=== PATIENT | male | born 1960 | race Caucasian/White ===

== ENCOUNTER 2018-03-10 14:47 | Inpatient (IN) | payer MEDICAID, OTHER ==
[~2018-03-10] VITALS: Ht 167.6 cm; Wt 66.7 kg
[~2018-03-10 14:47] MED LIST: ACET-2869 PO; AMIO200T5 PO; ASCO-770 PO; ASPI81CT89 PO; ATOR20TA40 PO; ATOR40TA PO; CARV3.122 PO; CLOP75TA26 PO; FURO-572 PO; IBUP-2213 PO; LEVO0.124 PO; LEVO0.155 PO; PRO5 PO; SPIR50TA PO; VITA1TAB44 PO
[2018-03-10 15:00] VITALS: BP 141/62
--- NOTE | 2018-03-10 15:02 | NUR ---
57 Y/O M BIB SELF W/C/O CHEST PAIN. PT STATES, "THE PAIN HAS BEEN COMING AND GOING FOR THE LAST 4 DAYS, THE PAIN FEELS SHARP AND IS ON THE L SIDE OF MY CHEST." PT FEELS PAIN AT REST. PT DENIES N/V/D; SKIN IS INTACT, PINK/WARM/DRY; AAOX4, PERRL, WITH EVEN AND STEADY GAIT; LUNGS CLEAR BL, BREATHING UNLABORED; HR EVEN AND REGULAR, BL PERIPHERAL PULSES PRESENT; BS ACTIVE X4, NO TENDERNESS TO PALPATION, NO HEPATOSPLENOMEGALLY PALPATED, RESONANT TO PERCUSSION; PT DENIES ANY FEVER, SOB, OR COUGH AT THIS TIME; PT STATES 9/10 PAIN AT THIS TIME; VSS; PATIENT POSITIONED FOR COMFORT; HOB ELEVATED; BEDRAILS UP X2; BED DOWN. hx--DM, CVA 6th bypass (9 months), Hypothyriodism, Hyperlipidemia, CDA rx--Levothyroxine 150mg, Furosemide 20mg, Clopidogrel 75mg, Metformin 500mg, Carvedilol 3.125mg, Atorvastatin 40mg, Spironolactone 25mg
--- NOTE | 2018-03-10 15:05 | NUR ---
notified er md valle of patient condition. gave report to Gia ELAINE.
--- NOTE | 2018-03-10 15:08 | NUR ---
DR. WATKINS AT BEDSIDE EVALUATING
--- NOTE | 2018-03-10 15:22 | NUR ---
PT. TAKEN TO CT SCAN VIA WHEELCHAIR BY GEORGE CLARK
[2018-03-10 16:01] LABS: BASOPHILS # (AUTO) 0.1 K/uL (0.00-0.22); BASOPHILS % (AUTO) 0.7 % (0.0-2.0); EOSINOPHILS # (AUTO) 0.2 K/uL (0-0.4); EOSINOPHILS % (AUTO) 1.5 % (0.0-4.0); HEMATOCRIT 43.9 % (36-52); HEMOGLOBIN 14.6 g/dL (12.0-18.0); LYMPHOCYTES # (AUTO) 1.6 K/uL (2.0-11.5); LYMPHOCYTES % (AUTO) 16.2 % (20.5-51.1); MEAN CORPUSCULAR HEMOGLOBIN 30 pg (27-31); MEAN CORPUSCULAR HGB CONC 33 g/dL (33-37); MEAN CORPUSCULAR VOLUME 91.1 fL (80-94); MONOCYTES # (AUTO) 0.5 K/uL (0.8-1.0); MONOCYTES % (AUTO) 5.4 % (1.7-9.3); NEUTROPHILS # (AUTO) 7.4 K/uL (1.8-7.7); NEUTROPHILS % (AUTO) 76.2 % (42.2-75.2); PLATELET COUNT (AUTO) 238 K/uL (140-450); RED BLOOD CELL COUNT(AUTO) 4.82 MIL/uL (4.20-6.10); RED CELL DISTRIBUTION WIDTH 14.7 % (11.6-13.7); WHITE BLOOD COUNT (AUTO) 9.7 K/uL (4.8-10.8)
[2018-03-10 16:15] LABS: ANION GAP 15.8 (8-16); CARBON DIOXIDE 28.4 mmol/L (21-32); CREATININE 1.3 mg/dL (0.7-1.3); POTASSIUM 4.2 mmol/L (3.5-5.1)
[2018-03-10 16:18] LABS: PROTHROMBIN TIME 10.3 secs (10.8-13.4)
[2018-03-10 16:21] LABS: ALBUMIN 4.1 g/dL (3.4-5.0); TOTAL BILIRUBIN 0.8 mg/dL (0.0-1.0)
--- NOTE | 2018-03-10 16:30 | NUR ---
PT. RESTING COMFORTABLY IN BED, RR EVEN AND UNLABORED. WILL CONTINUE TO MONITOR.
--- NOTE | 2018-03-10 17:45 | NUR ---
PT. AMBULATED TO RESTROOM, RR EVEN AND UNLABORED, STEADY GAIT. DENIES SOB. WILL CONTINUE TO MONITOR.
[2018-03-10] MEDS ORDERED: INSULIN LISPRO SLIDING SCALE 100 UNITS/ML VIAL SUBQ PRN (18:15)
[2018-03-10] MEDS ORDERED: HYDROcodone/APAP 5/325 MG 1 TAB TAB PO PRN (18:15)
[2018-03-10] MEDS ORDERED: ZOLPIDEM 5 MG TAB PO PRN (18:15)
[2018-03-10] MEDS ORDERED: LORazepam 2 MG/ML VIAL IVP PRN (18:15)
[2018-03-10] MEDS ORDERED: ALBUTEROL 0.083% 2.5 MG/3 ML NEBU IH PRN (18:15)
[2018-03-10] MEDS ORDERED: MORPHINE SULFATE 2 MG/ML SYR IVP PRN (18:15)
[2018-03-10] MEDS ORDERED: ACETAMINOPHEN 325 MG TAB PO PRN (18:15)
[2018-03-10] MEDS ORDERED: NITROGLYCERIN 0.4 MG TAB SL PRN (18:15)
[2018-03-10] MEDS ORDERED: ONDANSETRON 4 MG/2 ML VIAL IVP PRN (18:15)
--- NOTE | 2018-03-10 18:39 | NUR ---
Patient will be admitted to care of DR. HANSEN . Admited to TELE . Will go to room 112A . Belongings list completed. Report to CHELE MENDOZA .
--- NOTE | 2018-03-10 18:45 | NUR ---
RECEIVED PT REPORT FROM ER NURSE, YOVANI. PT IS AAOX4. AMBULATORY. VITALS TAKEN. MRSA SCREENING DONE. ORIENTED PT TO ROOM. SIDE RAILS UP X2, BED IN LOWEST POSITION. CALL LIGHT WITHIN REACH. CALLED KITCHEN FOR DINNER TRAY.
--- NOTE | 2018-03-10 19:15 | NUR ---
REPORT GIVEN TO CIVILIAN JAIL OFFICER RN. PT IN STABLE CONDITION.
--- NOTE | 2018-03-10 19:16 | NUR ---
RECEIVED BEDSIDE REPORT. PATIENTS VITAL SIGNS WITHIN NORMAL LIMITS. PATIENT IN NO DISTRESS. DENIES ANY PAIN. HAS NO SOB. IV ON RAC 20G CLEAN DRY AND INTACT. ALL SAFETY MEASURES IN PLACE. CALL LIGHT WITHIN REACH. WILL CONTINUE TO MONITOR.
--- NOTE | 2018-03-10 19:36 | NUR ---
RECEIVED CALL FROM Isaias ZHU FOR PT UPDATE, STATED TO ORDER TROPONIN, Q6H X2, AND EKG FOR TOMORROW MORNING, WILL PUT IN ORDERS, AND CONTINUE WITH ORDERS.
[2018-03-10 20:00] VITALS: BP 91/59
[2018-03-10] MEDS: BLOOD GLUCOSE MONITORING 1 DEV DEV FS SCH (20:42)
[2018-03-10] MEDS ORDERED: SIMVASTATIN 20 MG TAB PO SCH (21:00)
[2018-03-10] MEDS: METOPROLOL 25 MG TAB PO SCH (21:00)
--- NOTE | 2018-03-10 21:00 | NUR ---
DUE MEDICATIONS GIVEN LOPRESSOR HELD PT B/P WAS LOW 91/59. WILL CONTINUE TO MONITOR. CALL LIGHT WITHIN REACH.
[2018-03-11] VITALS: BP 91/49
--- NOTE | 2018-03-11 | NUR ---
PATIENT IS SLEEPING IN BED BUT IS EASILY AROUSABLE. PATIENT IS IN STABLE CONDITION. DENIES ANY PAIN. HAS NO SOB. CALL LIGHT WITHIN REACH WILL CONTINUE TO MONITOR.
--- NOTE | 2018-03-11 02:15 | NUR ---
PATIENT SLEEPING IN BED NO DISTRESS NOTED. BED ON LOWEST POSITION. CALL LIGHT WITHIN REACH. WILL CONTINUE TO MONITOR.
[2018-03-11 04:00] VITALS: BP 103/55
--- NOTE | 2018-03-11 04:20 | NUR ---
PATIENT SLEEPING IN BED. VITAL SIGNS WITHIN NORMAL LIMITS. PT DENIES PAIN AT THIS TIME. NO DISTRESS NOTED. CALL LIGHT WITHIN REACH WILL CONTINUE TO MONITOR.
--- NOTE | 2018-03-11 06:00 | NUR ---
PATIENT IS RESTING COMFORTABLY IN BED. NO DISTRESS NOTED AT THIS TIME. CALL LIGHT WITHIN REACH.
[2018-03-11] MEDS: BLOOD GLUCOSE MONITORING 1 DEV DEV FS SCH ×2 (06:25→11:55)
--- NOTE | 2018-03-11 07:00 | NUR ---
PT IV WAS OUT, CATH INTACT, NEW IV INSERTED L HAND 24G , PT TOLERATED WELL, NO DISTRESS NOTED, CALL LIGHT WITHIN REACH, WILL CONTINUE TO MONITOR.
--- NOTE | 2018-03-11 07:10 | NUR ---
ENDORSED PATIENT TO NURSE VIA SBAR. PATIENT RESTING COMFORTABLY IN BED. NO SOB. NO DISTRESS NOTED AT THIS TIME. CALL LIGHT WITHIN REACH
--- NOTE | 2018-03-11 07:11 | NUR ---
RECEIVED BEDSIDE REPORT FROM NIGHT NURSE. PT AWAKE, ALERT AND ORIENTED X 4. TELE PT. PT SUPINE IN BED. BUT ABLE TO AMBULATE INDEPENDENTLY. NO COMPLAINTS OF CHEST PAIN AT THIS TIME. LEFT HAND G 24 , SALINE LOCK BED AT LOWEST POSITION. CALL LIGHT WITHIN EASY REACH. WILL CONTINUE TO MONITOR.
[2018-03-11 07:42] LABS: BASOPHILS # (AUTO) 0.1 K/uL (0.00-0.22); BASOPHILS % (AUTO) 0.6 % (0.0-2.0); EOSINOPHILS # (AUTO) 0.3 K/uL (0-0.4); EOSINOPHILS % (AUTO) 2.8 % (0.0-4.0); HEMATOCRIT 43.1 % (36-52); HEMOGLOBIN 14.2 g/dL (12.0-18.0); LYMPHOCYTES # (AUTO) 2.1 K/uL (2.0-11.5); LYMPHOCYTES % (AUTO) 20.3 % (20.5-51.1); MEAN CORPUSCULAR HEMOGLOBIN 30 pg (27-31); MEAN CORPUSCULAR HGB CONC 33 g/dL (33-37); MEAN CORPUSCULAR VOLUME 91.8 fL (80-94); MONOCYTES # (AUTO) 0.8 K/uL (0.8-1.0); MONOCYTES % (AUTO) 7.5 % (1.7-9.3); NEUTROPHILS # (AUTO) 7.1 K/uL (1.8-7.7); NEUTROPHILS % (AUTO) 68.8 % (42.2-75.2); PLATELET COUNT (AUTO) 231 K/uL (140-450); RED BLOOD CELL COUNT(AUTO) 4.69 MIL/uL (4.20-6.10); RED CELL DISTRIBUTION WIDTH 14.6 % (11.6-13.7); WHITE BLOOD COUNT (AUTO) 10.3 K/uL (4.8-10.8)
--- NOTE | 2018-03-11 07:50 | NUR ---
PT C/O OF HEADACHE 11/16, PT STATES, " PRESSURE/ TENSION HEADACHE". WILL MEDICATE WITH TYLENOL.PT WAS GIVEN A CUP OF COFFEE PER PT'S REQUEST. WILL CONTINUE TO MONITOR FOR ANY OTHER CHANGES OF CONDITION
[2018-03-11 07:55] LABS: ANION GAP 6.9 (8-16); CARBON DIOXIDE 30.1 mmol/L (21-32); CREATININE 1.1 mg/dL (0.7-1.3)
[2018-03-11 08:00] VITALS: BP 88/64
--- NOTE | 2018-03-11 08:39 | NUR ---
PATIENT HAS BEEN SCREENED AND CATEGORIZED HIGH NUTRITION RISK. PATIENT WILL BE SEEN WITHIN 1-2 DAYS OF ADMISSION. 03/11/18 03/12/[address]
--- NOTE | 2018-03-11 08:40 | NUR ---
ADMINISTERED AM MEDS. PT ABLE TO SWALLOW, AND TOLERATED WELL. GIVEN TYLENOL FOR HEADACHE.HELD METOPROLOL FOR LOW BLOOD PRESSURE.
[2018-03-11] MEDS: METOPROLOL 25 MG TAB PO SCH (09:00)
[2018-03-11] MEDS ORDERED: ENOXAPARIN 40 MG/0.4 ML SYR SUBQ SCH (09:00)
[2018-03-11] MEDS ORDERED: ASPIRIN 81 MG TAB.CHEW PO SCH (09:00)
--- NOTE | 2018-03-11 09:19 | NUR ---
DR. REYES CALLED TO ORDER A TREADMILL STRESS TEST FOR 1300. FOR STRICT NPO TEMPORARILY UNTIL TEST IS DONE.CARDIOLOGY CALLED TO SCHEDULE 1300H TEST, CONFIRMED BY RUTH.PT MADE AWARE OF THE PLAN FOR NPO, VERBALIZED UNDERSTANDING. FLU SHOT OFFERED BUT PT REFUSED DUE TO FEAR OF GETTING SICK.
--- NOTE | 2018-03-11 10:09 | NUR ---
CM NOTE INITIAL REVIEW FAXED TO [facility] [phone] SANDEEP # [phone].
[2018-03-11] MEDS ORDERED: METF500T PO (11:52)
[2018-03-11 12:00] VITALS: BP 110/50
--- NOTE | 2018-03-11 13:38 | NUR ---
03/11/18 RD INITIAL ASSESSMENT COMPLETED PLEASE REFER TO NUTRITION ASSESSMENT UNDER CARE ACTIVITY FOR ESTIMATED NUTRITIONAL NEEDS. 1. CONTINUE CCHO 60 DIET TOLERATED 2. RECOMMEND CARDIAC DIET. 3. PT WAS EDUCATED ON HEART HEALTHY DIET 4. RD TO FOLLOW-UP 5-7 DAYS, LOW RISK JOHNNA CARLTON RD
--- NOTE | 2018-03-11 15:10 | NUR ---
DOCUMENTS PREPARED FOR DISCHARGE. PT. WAS EXPLAINED ON THE DISCHARGE PLAN & PRESCRIPTION. PT SIGNED PAPERS AND VERBALIZED UNDERSTANDING. PT ESCORTED TO EXIT AMBULATORY. NO FAMILY AROUND.PT STABLE IN CONDITION.
[2018-03-11] MEDS ORDERED: CARVEDILOL 3.125 MG TAB PO SCH (21:00)
[2018-03-12] MEDS ORDERED: LEVOTHYROXINE 0.075 MG TAB PO SCH (06:30)
[2018-03-12] MEDS ORDERED: ATORVASTATIN 20 MG TAB PO SCH (09:00)
[2018-03-12] MEDS ORDERED: CLOPIDOGREL 75 MG TAB PO SCH (09:00)
[2018-03-12] MEDS ORDERED: FUROSEMIDE 20 MG TAB PO SCH (09:00)
== END 2018-03-11 15:10 | disposition home or self-care (01) | DRG 203 ==
LOC: MED 14:47 → MTU 18:17 → OBSVTOIN 03-11 07:36
PROVIDERS: ADMIT Hospitalist; ATTEND Hospitalist
DX: M94.0 Chondrocostal junction syndrome [Tietze] (principal); E11.51 Type 2 diabetes mellitus with diabetic peripheral angiopathy without gangrene; I50.9 Heart failure, unspecified; I11.0 Hypertensive heart disease with heart failure; E78.5 Hyperlipidemia, unspecified; I25.10 Atherosclerotic heart disease of native coronary artery without angina pectoris; F17.210 Nicotine dependence, cigarettes, uncomplicated; E03.9 Hypothyroidism, unspecified; I65.23 Occlusion and stenosis of bilateral carotid arteries; J44.9 Chronic obstructive pulmonary disease, unspecified; Z79.82 Long term (current) use of aspirin; Z86.73 Personal history of transient ischemic attack (TIA), and cerebral infarction without residual deficits; Z79.899 Other long term (current) drug therapy; Z95.1 Presence of aortocoronary bypass graft; Z79.84 Long term (current) use of oral hypoglycemic drugs; Z71.6 Tobacco abuse counseling
CPT/HCPCS: 99285; G0378; 36415; 70450; 71045; 80048; 80053; 82550; 82553; 82948; 83735; 83880; 84484; 85025; 85610; 85730; 86886; 86900; 86901; 87081; 93005; J1650; J1815

== ENCOUNTER 2018-07-29 16:01 | Emergency (ER) | payer OTHER ==
[~2018-07-29] VITALS: Ht 165.1 cm; Wt 63.5 kg
[~2018-07-29 16:01] MED LIST changes: -ACET-2869 PO; -AMIO200T5 PO; -ASCO-770 PO; -ASPI81CT89 PO; -ATOR20TA40 PO; -IBUP-2213 PO; -LEVO0.124 PO; +METF500T PO; -PRO5 PO; -VITA1TAB44 PO
[2018-07-29 16:10] VITALS: BP 173/102
--- NOTE | 2018-07-29 16:35 | NUR ---
PT. CAME INTO THE ED DUE TO COUGH X 3 DAYS . PT. STATES " I HAVE BEEN COUGHING HARD FOR 3 DAYS WITH CLEAR AND WHITE PHLEGM". 6/10 R SIDED CHEST PAIN THAT IS NON RADIATING AND CONSTANT AND WORSE UPON COUGHING. DENIES ANY N/V/D. PT IS AWAKE AND ALERT AND ABLE TO SPEAK IN FULL AND COMPLETE SENTENCES. LS: CLEAR BILAT. THROUGHOUT. SYMMETRICAL CHEST RISE AND FALL. RR EVEN AND UNLABORED. DENIES ANY FEVERS OR CHILLS. L SIDED WEAKNESS DUE TO STROK PER PATIENT. ER MD MADE AWARE. SAFETY PRECAUTIONS IN PLACE. WILL CONTINUE TO MONITOR.
--- NOTE | 2018-07-29 17:08 | NUR ---
XRAY AT BEDSIDE AT THIS TIME.
[2018-07-29 17:41] VITALS: BP 136/78
--- NOTE | 2018-07-29 17:41 | NUR ---
Patient discharged with v/s stable. Written and verbal after care instructions given and explained. Patient verbalized understanding. Ambulatory with to car. All questions addressed prior to discharge. Advised to follow up with PMD 1-2 DAYS .
== END 2018-07-29 17:41 | disposition home or self-care (01) ==
LOC: MED 16:01
DX: J06.9 Acute upper respiratory infection, unspecified (principal); R07.89 Other chest pain; R53.1 Weakness; R20.0 Anesthesia of skin; I11.0 Hypertensive heart disease with heart failure; I50.9 Heart failure, unspecified; E11.9 Type 2 diabetes mellitus without complications; F17.210 Nicotine dependence, cigarettes, uncomplicated; Z90.89 Acquired absence of other organs; Z86.73 Personal history of transient ischemic attack (TIA), and cerebral infarction without residual deficits
CPT/HCPCS: 71045; 99283; Q0092; 93005

== ENCOUNTER 2018-09-11 16:55 | Inpatient (IN) | payer MEDICAID, OTHER ==
[~2018-09-11] VITALS: Ht 167.6 cm; Wt 64.0 kg
[2018-09-11 17:15] VITALS: BP 157/91
--- NOTE | 2018-09-11 17:32 | NUR ---
PT AMBULATES TO CHAIR E
--- NOTE | 2018-09-11 17:53 | NUR ---
57 Y MALE BIB SELF WITH C/O LT SIDED CHEST PAIN AROUND 0930 THIS MORNING, TINGLING LT ARM, FELL LIGHT HEADED AND FELL DOWN TO THE FLOOR, FELT CONFUSED. PRESSURE AND CHEST PAIN 5/10. DENIES LOC, OR NVD. ALERT TO PERSON TIME AND PLACE. UNABLE TO RECALL YEAR. CLEAR SPEECH. WAS SEEN ON 07/29/18 FOR CP. PT ON MONITOR. BP 150/69. BED IS DOWN LOCKED, BED RAIL X1, ERMD NOTIFIED. HX; STROKE, OPEN HEART SURGERY, HTN, SURGERY ON R SHOULDER AND BOTH KNEES, CAN'T RECALL OTHER DIAGNOSIS RX; CARVEDILOL, LEVOTHYROXINE, CLOPIDOGREL, METFORMIN, SPIRONOLACTONE, LASIX, PLAVIX, GLUCOPHAGE
[2018-09-11] MEDS ORDERED: MORPHINE SULFATE 4 MG/ML SYR IVP ONE (18:55)
--- NOTE | 2018-09-11 19:01 | NUR ---
PT BEING TAKEN TO CT
--- NOTE | 2018-09-11 19:39 | NUR ---
PT REFUSED MORPHINE, SAID HE GETS HALLUCINATIONS
[2018-09-11 19:41] LABS: BASOPHILS % (AUTO) 0.4 % (0.0-2.0); EOSINOPHILS # (AUTO) 0.1 K/uL (0-0.4); EOSINOPHILS % (AUTO) 1.2 % (0.0-4.0); HEMATOCRIT 45.3 % (36-52); HEMOGLOBIN 15.4 g/dL (12.0-18.0); LYMPHOCYTES % (AUTO) 19.4 % (20.5-51.1); MEAN CORPUSCULAR HEMOGLOBIN 31 pg (27-31); MEAN CORPUSCULAR HGB CONC 34 g/dL (33-37); MEAN CORPUSCULAR VOLUME 89.5 fL (80-94); MONOCYTES # (AUTO) 0.7 K/uL (0.8-1.0); MONOCYTES % (AUTO) 6.9 % (1.7-9.3); NEUTROPHILS # (AUTO) 7.6 K/uL (1.8-7.7); NEUTROPHILS % (AUTO) 72.1 % (42.2-75.2); PLATELET COUNT (AUTO) 239 K/uL (140-450); RED BLOOD CELL COUNT(AUTO) 5.06 MIL/uL (4.20-6.10); RED CELL DISTRIBUTION WIDTH 13.3 % (11.6-13.7); WHITE BLOOD COUNT (AUTO) 10.5 K/uL (4.8-10.8)
--- NOTE | 2018-09-11 20:13 | NUR ---
DR ROYAL AT BEDSIDE
[2018-09-11] MEDS ORDERED: NACL 0.9% 1,000 ML IV ONE (20:20)
[2018-09-11] MEDS ORDERED: NITROGLYCERIN 2% 1 GM PKT TP ONE (20:20)
[2018-09-11] MEDS ORDERED: KETOROLAC 15 MG/ML VIAL IVP ONE (20:20)
[2018-09-11 20:26] LABS: ANION GAP 14.6 (8-16); POTASSIUM 3.6 mmol/L (3.5-5.1)
[2018-09-11 20:33] LABS: TOTAL BILIRUBIN 0.5 mg/dL (0.0-1.0)
--- NOTE | 2018-09-11 21:04 | NUR ---
REPORT GIVEN TO MALACHI ELAINE
[2018-09-11] MEDS: NACL 0.9% 1,000 ML IV SCH (21:56)
[2018-09-11] MEDS ORDERED: ACETAMINOPHEN 325 MG TAB PO PRN (22:00)
[2018-09-11] MEDS ORDERED: KETOROLAC 30 MG/ML VIAL IVP PRN (22:00)
[2018-09-11] MEDS ORDERED: DOCUSATE SODIUM 100 MG GELCAP PO PRN (22:00)
[2018-09-11] MEDS ORDERED: HYDROcodone/APAP 7.5/325 MG 1 TAB PO PRN (22:00)
[2018-09-11] MEDS ORDERED: ONDANSETRON 4 MG/2 ML VIAL IM/IVP PRN (22:00)
--- NOTE | 2018-09-11 22:08 | NUR ---
PT SITTING ON CHAIR AT BEDSIDE, VSS, RR EVEN AND UNLABORED. REPORTS MILD HEADACHE. REPORTS TOLERABLE PRESSURE-LIKE CP AT THIS TIME. ALL NEEDS MET.
[2018-09-11 22:27] LABS: PROTHROMBIN TIME 9.9 secs (10.8-13.4)
[2018-09-11] MEDS ORDERED: SPIR25TA20 PO (22:28)
[2018-09-11] MEDS ORDERED: FURO-572 PO (22:28)
[2018-09-11 22:30] LABS: CHOL/HDL RATIO 2.2 (1-4.5); HDL CHOLESTEROL 60 mg/dL (40-60); LDL (CALC) 60 mg/dL (60-100); LIPASE 187 U/L (73-393); PHOSPHORUS 3.5 mg/dL (2.5-4.9); THYROID STIMULATING HORMONE < 0.01 uIU/mL (0.34-3.74); TRIGLYCERIDES 73 mg/dL (30-150)
--- NOTE | 2018-09-11 22:40 | NUR ---
Patient will be admitted to care of DR. HANSEN. Admited to TELE. Will go to room 125B. Belongings list completed. Report to CHELE VIVEROS AT BEDSIDE.
[2018-09-11 22:55] LABS: APPEARANCE,URINE CLEAR (CLEAR); BILIRUBIN,URINE NEGATIVE (NEGATIVE); BLOOD, URINE TRACE-L (NEGATIVE); COLOR,URINE YELLOW (YELLOW); LEUKOCYTE ESTERASE ,URINE NEGATIVE (NEGATIVE); NITRITE, URINE NEGATIVE (NEGATIVE); UGLUCOSE NEGATIVE (NEGATIVE)
--- NOTE | 2018-09-11 23:00 | NUR ---
RECEIVED FROM ER PER WHEELCHAIR AWAKE AND ALERT. AMBULATING WELL. NO SOB. DENIES ANY PAIN AT THIS TIME. CALL LIGHT WITH IN REACH. CARE PLANS FOR THE NIGHT DISCUSSED WITH HIM. ORIENTED TO ROOM , BED AND PROVIDER SERVICE REPRESENTATIVE. DX. OF CHEST PAIN R/O ACS. TELEMETRY MONITORING. NO EDEMA. CTAB.
[2018-09-11 23:04] VITALS: BP 124/58
[2018-09-11 23:10] LABS: RBC,URINE 0-5 /HPF (0-5); WBC,URINE NONE SEEN /HPF (0-5)
[2018-09-11 23:17] LABS: BARBITURATE, URINE NEG. ng/ml (NEG <=200); BENZODIAZEPINE, URINE NEG. ng/mL (NEG <=200); CANNABINOID, URINE NEG. ng/mL (NEG <=50); COCAINE, URINE NEG. ng/mL (NEG <=300); OPIATE, URINE NEG. ng/mL (NEG <=2000); PHENCYCLIDINE SCREEN,URINE NEG. ng/mL (NEG <=25)
--- NOTE | 2018-09-12 01:21 | NUR ---
SLEEPING AT THIS TIME. NO RESTLESSNESS. ON FALL PRECAUTIONS RT FELL OUTSIDE OF FACILITY PRIOR ADMISSION. BED ALARM ON. CALL LIGHT WITH IN REACH.
[2018-09-12] MEDS: NACL 0.9% 1,000 ML IV SCH (02:31)
--- NOTE | 2018-09-12 03:00 | NUR ---
SLEEPING. NO RESTLESSNESS. TELEMETRY MONITORING.
[2018-09-12 04:39] VITALS: BP 97/58
--- NOTE | 2018-09-12 04:41 | NUR ---
WOKE UP WHEN VITALS TAKEN. DENIES PAIN. SLEPT BACK EASILY. AMBULATES WELL WITH OUT ASSIST. BED ALARM ON. CALL LIGHT WITH IN REACH. TELEMETRY MONITORING.
--- NOTE | 2018-09-12 06:23 | NUR ---
SLEEPING STILL. MO COMPLAINTS OF CHEST PAIN THIS SHIFT. WAKES UP EASILY WHEN TOUCHED OR CALLED BY NAME. WILL ENDORSE TO THE NEXT AM RN FOR CONTINUITY OF CARE. TELEMETRY MONITORING. INDEPENDENT.
--- NOTE | 2018-09-12 07:20 | NUR ---
RECEIVED PT REPORT FROM MAGAZINE HAND NURSE, PT IS AWAKE AND ALERT, NO S/S OF ACUTE DISTRESS OR SOB NOTED. PT IS ON ROOM AIR, SKIN INTACT. IV SITE IS ON THE R HAND, 24 G, INFUSING NS 60 ML/HR. FALL PRECAUTIONS ARE IN PLACE. CALL LIGHT WITHIN REACH. WILL CONTINUE TO MONITOR.
[2018-09-12 07:40] LABS: ANION GAP 12.9 (8-16); CARBON DIOXIDE 25.9 mmol/L (21-32); CREATININE 1.2 mg/dL (0.7-1.3); POTASSIUM 3.8 mmol/L (3.5-5.1)
[2018-09-12 07:45] LABS: BASOPHILS % (AUTO) 0.3 % (0.0-2.0); EOSINOPHILS # (AUTO) 0.3 K/uL (0-0.4); EOSINOPHILS % (AUTO) 4.3 % (0.0-4.0); HEMATOCRIT 38.2 % (36-52); HEMOGLOBIN 13.1 g/dL (12.0-18.0); LYMPHOCYTES # (AUTO) 1.6 K/uL (2.0-11.5); LYMPHOCYTES % (AUTO) 22.4 % (20.5-51.1); MEAN CORPUSCULAR HEMOGLOBIN 31 pg (27-31); MEAN CORPUSCULAR HGB CONC 34 g/dL (33-37); MONOCYTES # (AUTO) 0.7 K/uL (0.8-1.0); MONOCYTES % (AUTO) 9.6 % (1.7-9.3); NEUTROPHILS # (AUTO) 4.6 K/uL (1.8-7.7); NEUTROPHILS % (AUTO) 63.4 % (42.2-75.2); PLATELET COUNT (AUTO) 194 K/uL (140-450); RED BLOOD CELL COUNT(AUTO) 4.29 MIL/uL (4.20-6.10); RED CELL DISTRIBUTION WIDTH 13.3 % (11.6-13.7); WHITE BLOOD COUNT (AUTO) 7.2 K/uL (4.8-10.8)
[2018-09-12 08:00] VITALS: BP 111/55
--- NOTE | 2018-09-12 08:21 | NUR ---
PATIENT HAS BEEN SCREENED AND CATEGORIZED MODERATE NUTRITION RISK. PATIENT WILL BE SEEN WITHIN 3-5 DAYS OF ADMISSION. 09/13/18-09/15/[address]
[2018-09-12] MEDS: metFORMIN 500 MG TAB PO SCH ×2 (08:27→20:09)
[2018-09-12] MEDS: CLOPIDOGREL 75 MG TAB PO SCH (08:27)
[2018-09-12] MEDS: ATORVASTATIN 20 MG TAB PO SCH (08:28)
[2018-09-12] MEDS: LACTOBACILLUS RHAMNOSUS GG 1 EACH CAP PO SCH (08:28)
[2018-09-12] MEDS: CARVEDILOL 3.125 MG TAB PO SCH ×2 (08:28→21:00)
--- NOTE | 2018-09-12 08:35 | NUR ---
AM ORAL MEDS ADMINISTERED, PT TOLERATED WELL. PT'S IV GOT INFILTRATED, WILL ATTEMPT TO INSERT A NEW IV.
[2018-09-12] MEDS ORDERED: LEVOTHYROXINE 0.075 MG TAB PO SCH (09:00)
[2018-09-12] MEDS ORDERED: FUROSEMIDE 20 MG/2 ML VIAL IVP SCH (09:00)
[2018-09-12] MEDS ORDERED: ASPIRIN 81 MG TAB.CHEW PO SCH (09:00)
--- NOTE | 2018-09-12 10:05 | NUR ---
PT GETTING EKG AT THIS TIME
--- NOTE | 2018-09-12 10:05 | NUR ---
TWO ATTEMPTS AT INSERTING A NEW IV UNSUCCESSFUL; WILL ASK ANOTHER RN TO TRY INSERTING IV
--- NOTE | 2018-09-12 11:55 | NUR ---
NEW IV INSERTED: L HAND 22 GAUGE. PATENT AND INTACT.
[2018-09-12 12:00] VITALS: BP 113/63
[2018-09-12] MEDS: APAP/BUTAL/CAFF 325/50/40 MG 1 TAB PO PRN ×2 (12:34→20:10)
--- NOTE | 2018-09-12 14:05 | NUR ---
PT'S OWN MEDICATIONS TAKEN TO PHARMACY TO BE KEPT UNTIL DISCHARGE.
[2018-09-12 16:00] VITALS: BP 100/64
--- NOTE | 2018-09-12 18:05 | NUR ---
PT'S IV BECAME INFILTRATED AGAIN. DR KRUSE IS AWARE, SHE CANCELLED PT'S IV FLUIDS, SINCE HE IS EATING AND DRINKING, AND CHANGED HIS IV LASIX TO ORAL ROUTE.
--- NOTE | 2018-09-12 18:33 | NUR ---
PT SEEN BY DR SPEAR.
--- NOTE | 2018-09-12 19:25 | NUR ---
RECEIVED ENDORSEMENT FORM MALENA ELAINE AT BEDSIDE FOR ENDORSEMENT OF CARE, PT IN STABLE CONDITION.
--- NOTE | 2018-09-12 19:25 | NUR ---
PT ENDORSED TO HAIRCUTTER NURSE IN STABLE CONDITION.
--- NOTE | 2018-09-12 19:25 | NUR ---
RECEIVED REPORT AT BEDSIDE FORM MALENA RN DAYSHIFT NURSE FOR CONTINUITY OF CARE, PT IN STABLE CONDITION.
[2018-09-12 20:00] VITALS: BP 95/60
--- NOTE | 2018-09-12 20:00 | NUR ---
PT IN BED NO S/S OF PAIN OR DISTRESS NOTED. V/S FOLLOWS T 98.2 P 67 R 18 B/P 95/60 02 100%. PT REQUEST SNACK AND PAIN MEDICATION FOR HEADACHE.
--- NOTE | 2018-09-12 20:15 | NUR ---
PT GIVEN PO/PRN FIORICET FOR C/O HEADACHE PLUS SNACK. PT GIVEN DUE MEDS EXCEPT FOR COREG WAS HELD DUE TO B/P BEING LOW 95/60. ALL FALLS PRECAUTIONS N PLACE. WILL MONITOR FOR EFFECT.
[2018-09-13] VITALS: BP 106/53
--- NOTE | 2018-09-13 00:30 | NUR ---
PT IN BED SLEEPING BUT AROUSABLE TO NAME, V/S FOLLOWS T 97.7 P 63 R 18 B/P 106/53 02 99% ON ROOM AIR.
[2018-09-13 04:00] VITALS: BP 103/47
--- NOTE | 2018-09-13 07:30 | NUR ---
RECEIVED PT REPORT FROM BOOTMAKER NURSE, PT IS ASLEEP, ON ROOM AIR, SKIN INTACT, NO S/S OF ACUTE DISTRESS OR SOB. NO IV SITE NOTED. FALL PRECAUTIONS MAINTAINED. CALL LIGHT IS WITHIN REACH. WILL CONTINUE TO MONITOR.
--- NOTE | 2018-09-13 07:30 | NUR ---
CARE ENDORSEE TO MALENA RN DAYSHIFT AT BEDSIDE FOR CONTINUITY OF CARE, PT IN STABLE CONDITION.
[2018-09-13 08:00] VITALS: BP 105/72
--- NOTE | 2018-09-13 08:15 | NUR ---
AM MEDS ADMINISTERED, PT TOLERATED WELL.
[2018-09-13] MEDS: CARVEDILOL 3.125 MG TAB PO SCH (08:42)
[2018-09-13] MEDS: LACTOBACILLUS RHAMNOSUS GG 1 EACH CAP PO SCH (08:42)
[2018-09-13] MEDS: ATORVASTATIN 20 MG TAB PO SCH (08:42)
[2018-09-13] MEDS: metFORMIN 500 MG TAB PO SCH (08:43)
[2018-09-13] MEDS: CLOPIDOGREL 75 MG TAB PO SCH (08:43)
[2018-09-13] MEDS ORDERED: FUROSEMIDE 20 MG TAB PO SCH (09:00)
[2018-09-13 12:00] VITALS: BP 122/69
[2018-09-13] MEDS ORDERED: LEVO0.155 PO (12:50)
--- NOTE | 2018-09-13 14:35 | NUR ---
PT HAS DISCHARGED. PT VERBALIZED UNDERSTANDING TO D/C INSTRUCTIONS. PT'S OWN MEDS RETURNED FROM PHARMACY. WRIST BANDS REMOVED. PT LEFT WITH ALL HIS BELONGINGS IN STABLE CONDITION.
== END 2018-09-13 14:30 | disposition home or self-care (01) | DRG 203 ==
LOC: MED 16:55 → MMU 22:00
PROVIDERS: ADMIT General Practice; ATTEND General Practice
DX: M94.0 Chondrocostal junction syndrome [Tietze] (principal); I50.43 Acute on chronic combined systolic (congestive) and diastolic (congestive) heart failure; I11.0 Hypertensive heart disease with heart failure; I69.354 Hemiplegia and hemiparesis following cerebral infarction affecting left non-dominant side; E05.90 Thyrotoxicosis, unspecified without thyrotoxic crisis or storm; E11.9 Type 2 diabetes mellitus without complications; F17.210 Nicotine dependence, cigarettes, uncomplicated; G44.209 Tension-type headache, unspecified, not intractable; I25.10 Atherosclerotic heart disease of native coronary artery without angina pectoris; Z79.84 Long term (current) use of oral hypoglycemic drugs; Z79.899 Other long term (current) drug therapy; Z95.1 Presence of aortocoronary bypass graft; Z83.3 Family history of diabetes mellitus; Z82.3 Family history of stroke; Z82.49 Family history of ischemic heart disease and other diseases of the circulatory system
CPT/HCPCS: 36415; 70450; 71045; 80048; 80053; 80305; 81001; 82140; 83036; 83605; 83690; 83735; 83880; 84100; 84439; 84443; 84484; 85025; 85610; 85730; 87081; 93005; 96374; 96375; 99285; J1885; J1940; J2270; J7030; Q0092

== ENCOUNTER 2018-09-18 15:04 | Emergency (ER) | payer MEDICAID ==
[~2018-09-18] VITALS: Ht 167.6 cm; Wt 65.8 kg
[~2018-09-18 15:04] MED LIST changes: +SPIR25TA20 PO; -SPIR50TA PO
[2018-09-18 15:13] VITALS: BP 96/63
--- NOTE | 2018-09-18 15:15 | NUR ---
PT AMBULATED TO ED MED 10. MADE AWARE OF PT STATUS, 12 LEADS EKG PERFORMED AT BEDSIDE.
--- NOTE | 2018-09-18 15:17 | NUR ---
BIB SELF. AAOX4. C/O PALPITATION WITH CHEST PAIN X 3 DAYS. PRESSURE LIKE PAIN 5/10, RADIATES TO LT ARM. PT WAS SEEN BY ER [facility] 3 DAYS AGO FOR THE SAME S/SX. PT STATES FEELING ANXIOUS. PERRLA, BRISK 3 MM. CLEAR SPEECH. NO FACIAL DROOPING. EQUAL SARAI UPPER AND LOWER STRENGTH. PT PLACED ON FULL CIRCUS ROUSTABOUT. HOB UP. BED SIDE RAILS UP X1. ON LOW BED POSITION, LOCKED. ER MADE AWARE OF PT STATUS. WILL CONTINUE TO MONITOR.
--- NOTE | 2018-09-18 15:19 | NUR ---
TEAM FACILITATOR AT BEDSIDE
[2018-09-18 15:52] LABS: BASOPHILS # (AUTO) 0.2 K/uL (0.00-0.22); BASOPHILS % (AUTO) 2.2 % (0.0-2.0); EOSINOPHILS # (AUTO) 0.1 K/uL (0-0.4); HEMATOCRIT 41.2 % (36-52); LYMPHOCYTES % (AUTO) 8.9 % (20.5-51.1); MEAN CORPUSCULAR HEMOGLOBIN 31 pg (27-31); MEAN CORPUSCULAR HGB CONC 34 g/dL (33-37); MEAN CORPUSCULAR VOLUME 90.3 fL (80-94); MONOCYTES # (AUTO) 0.4 K/uL (0.8-1.0); MONOCYTES % (AUTO) 3.8 % (1.7-9.3); NEUTROPHILS # (AUTO) 9.1 K/uL (1.8-7.7); NEUTROPHILS % (AUTO) 84.1 % (42.2-75.2); PLATELET COUNT (AUTO) 218 K/uL (140-450); RED BLOOD CELL COUNT(AUTO) 4.56 MIL/uL (4.20-6.10); RED CELL DISTRIBUTION WIDTH 13.7 % (11.6-13.7); WHITE BLOOD COUNT (AUTO) 10.8 K/uL (4.8-10.8)
[2018-09-18 16:03] LABS: ANION GAP 13.1 (8-16); CARBON DIOXIDE 28.8 mmol/L (21-32); POTASSIUM 3.9 mmol/L (3.5-5.1)
[2018-09-18 16:09] LABS: ALBUMIN 3.6 g/dL (3.4-5.0); TOTAL BILIRUBIN 0.3 mg/dL (0.0-1.0)
--- NOTE | 2018-09-18 16:48 | NUR ---
PT TO ER BED 3.
--- NOTE | 2018-09-18 17:32 | NUR ---
PT RESTING IN BED, NO NEW NEEDS AT THIS TIME
[2018-09-18] MEDS ORDERED: KETOROLAC 60 MG/2 ML VIAL IM ONE (18:05)
[2018-09-18 18:42] VITALS: BP 98/57
--- NOTE | 2018-09-18 18:42 | NUR ---
Patient discharged with v/s stable. Written and verbal after care instructions given and explained. Patient alert, oriented and verbalized understanding of instructions. Ambulatory with steady gait. All questions addressed prior to discharge. ID band removed. Patient advised to follow up with PMD. Rx of ATARAX AND MOTRIN given. Patient educated on indication of medication including possible reaction and side effects. Opportunity to ask questions provided and answered.
== END 2018-09-18 18:42 | disposition home or self-care (01) ==
LOC: MED 15:04
DX: F41.9 Anxiety disorder, unspecified (principal); Z86.73 Personal history of transient ischemic attack (TIA), and cerebral infarction without residual deficits; I10 Essential (primary) hypertension; E07.9 Disorder of thyroid, unspecified; Z90.49 Acquired absence of other specified parts of digestive tract; Z79.899 Other long term (current) drug therapy
CPT/HCPCS: 36415; 71045; 80053; 81002; 84484; 85025; 93005; 96372; 99284; J1885; Q0092